=== PATIENT | male | born 2000 | race African-American/Black ===

== ENCOUNTER 2025-06-26 18:43 | Emergency (ER) | payer OTHER ==
[~2025-06-26] VITALS: Ht 172.7 cm; Wt 70.5 kg
[2025-06-26 18:56] VITALS: TEMP 97.2
[2025-06-26] MEDS: UNRESOLVED CLARIFICATION ENTRY XX STA (19:29)
[2025-06-26] MEDS: MIDAZOLAM INJ 2 MG/2 ML VIAL IV STA (19:33)
[2025-06-26] MEDS: NS (Normal Saline) 0.9% 1,000 ML IV ONE (19:33)
[2025-06-26 19:47] LABS: BASO # 0.0 10^3/uL (0.0-0.2); BASO % 0.5 % (0.0-1.0); EOS # 0.1 10^3/uL (0.0-0.5); EOS % 0.8 % (0.0-3.0); LYMPH # 1.5 10^3/uL (1.5-5.0); LYMPH % 23.9 % (24.0-44.0); MONO # 0.4 10^3/uL (0.0-0.8); MONO % 6.1 % (2.0-8.0); NEUTROPHILS # 4.2 10^3/uL (1.5-8.5); NEUTROPHILS % 68.5 % (36.0-66.0); PLATELET COUNT, AUTOMATED 130 10^3/uL (150-450)
[2025-06-26 20:05] LABS: AMPHETAMINES LEVEL URINE NEGATIVE (NEGATIVE); BARBITURATES URINE NEGATIVE (NEGATIVE); BENZODIAZEPINES URINE NEGATIVE (NEGATIVE); CANNABINOIDS URINE NEGATIVE (NEGATIVE); COCAINE METABOLITE URINE NEGATIVE (NEGATIVE); METHADONE URINE NEGATIVE (NEGATIVE); OPIATES URINE NEGATIVE (NEGATIVE); PHENCYCLIDINE URINE NEGATIVE (NEGATIVE)
[2025-06-26 20:37] LABS: CALCIUM LEVEL 9.0 MG/DL (8.5-10.1); CARBON DIOXIDE LEVEL 25 MMOL/L (20-31); CHLORIDE LEVEL 97 MMOL/L (98-107); CREATININE FOR GFR 1.02 MG/DL (0.70-1.30); GLOMERULAR FILTRATION RATE > 90.0 (>60); MAGNESIUM LEVEL 1.9 MG/DL (1.8-2.4); POTASSIUM SERUM 3.7 MMOL/L (3.5-5.1); SODIUM LEVEL 140 MMOL/L (136-145)
[2025-06-26 20:45] LABS: ETHYL ALCOHOL (ETHANOL) 0.361 % (0.000-0.010)
[2025-06-26] MEDS: OXAZEPAM 15MG CAP PO ONE (21:39)
[2025-06-27] MEDS: OXAZEPAM 15MG CAP PO ONE (01:05)
[2025-06-27] MEDS: NS (Normal Saline) 0.9% 1,000 ML IV ONE (08:00)
[2025-06-27 11:00] VITALS: BP 125/77; O2SAT 97
== END 2025-06-27 11:27 | disposition home or self-care (01) ==
LOC: M ED 18:43
DX: F10.120 Alcohol abuse with intoxication, uncomplicated (principal)
CPT/HCPCS: 80048; 80307; 82077; 83735; 85025; 93005; 96361; 96374; 96375; 99285; J2060; J2250